=== PATIENT | male | born 1955 | race Caucasian/White ===

== ENCOUNTER 2021-09-24 14:29 | Outpatient (CLI) | payer MEDICARE | END 2021-09-24 14:30 | disposition home or self-care (01) | LOC: LABBT 14:29 | PROVIDERS: ATTEND Thoracic Surgery (Cardiothoracic Vascular Surgery) | DX: Z01.818 Encounter for other preprocedural examination (principal); Z20.822 Contact with and (suspected) exposure to COVID-19 | CPT/HCPCS: 80048; 85027; 86850; 86900; 86901; 87811; 93005; 93010 ==

== ENCOUNTER 2021-09-24 14:30 | Inpatient (IN) | payer MEDICARE ==
[2021-09-24 16:18] LABS: Hemoglobin 16.5 g/dL (13.5-17.5); Mean Corpuscular HGB CONC 33.5 g/dL (32.0-36.0); Mean Corpuscular Hemoglobin 32.7 pg (27.0-33.0); Mean Corpuscular Volume 97.8 fl (81.2-95.1); Mean Platelet Volume 10.9 fl (7.4-10.4); Platelet Count 270 10x3/uL (150-450); RBC Distribution Width 13.2 % (11.5-14.5); Red Blood Cell (RBC) Count 5.04 10x6/uL (4.32-5.72); White Blood Cell (WBC) Count 7.6 10x3/uL (3.5-10.5)
[2021-09-24 16:39] LABS: Anion Gap 13 mmol/L (10-20); BUN (Urea Nitrogen) 9 mg/dL (8.4-25.7); Calc. Creatinine Clearance 0 mL/min (70-130); Calcium 9.2 mg/dL (7.8-10.44); Carbon Dioxide 28 mmol/L (23-31); Chloride 107 mmol/L (98-107); Estimated GFR 85; Glucose 171 mg/dL (80-115); Potassium 4.1 mmol/L (3.5-5.1); Sodium 144 mmol/L (136-145)
[2021-09-28] MEDS ORDERED: Midazolam HCl 2 mg/2 ml Vial ONE ×2 (08:12→08:54)
[2021-09-28] MEDS ORDERED: fentaNYL Citrate/PF 100 MCG/2 ML SYRINGE ONE (08:13)
[2021-09-28] MEDS ORDERED: Lidocaine 1% MPF 2 ML VIAL ONE (08:53)
[2021-09-28] MEDS ORDERED: CEFAZOLIN 2 GM VIAL ONE (10:41)
[2021-09-28] MEDS ORDERED: Sodium Chloride 0.9% 100 ML ONE (10:41)
[2021-09-28] MEDS ORDERED: Naloxone HCl 0.4 mg/ml Vial IV PRN (10:45)
[2021-09-28] MEDS ORDERED: Promethazine HCl 25 MG/ML VIAL IM PRN (10:45)
[2021-09-28] MEDS ORDERED: Bupivacaine 0.25% 10 ML VIAL EPIDURAL PRN (10:45)
[2021-09-28] MEDS ORDERED: HYDROcodone/Acetaminophen 5/325 mg Tablet PO PRN (10:45)
[2021-09-28] MEDS ORDERED: diphenhydrAMINE 50 MG/ML VIAL IM PRN (10:45)
[2021-09-28] MEDS ORDERED: diphenhydrAMINE 25 MG CAP PO PRN (10:45)
[2021-09-28] MEDS ORDERED: traMADol HCl 50 MG TAB PO PRN ×2 (10:45)
[2021-09-28] MEDS ORDERED: Promethazine HCl 25 MG SUPP PR PRN (10:45)
[2021-09-28] MEDS ORDERED: Zolpidem Tartrate 5 MG TAB PO PRN (10:45)
[2021-09-28] MEDS ORDERED: Ondansetron PF 4 MG/2 ML Vial IVP PRN ×2 (10:45→15:34)
[2021-09-28] MEDS ORDERED: Moisturizing Cream (Eucerin) 113 GM JAR TOP PRN (10:45)
[2021-09-28] MEDS ORDERED: diphenhydrAMINE 50 MG/ML VIAL IVP PRN (10:45)
[2021-09-28] MEDS ORDERED: Naloxone HCl 0.4 mg/ml Vial IVP PRN (10:45)
[2021-09-28] MEDS ORDERED: Lidocaine 2% w/Epinephrine 1:200K 20 ML VIAL ONE (10:50)
[2021-09-28] MEDS ORDERED: Glycopyrrolate 0.2 MG/ML 5 ML SYRINGE ONE (10:50)
[2021-09-28] MEDS ORDERED: Lidocaine 1.5% w/Epi 1:200K 30 ML VIAL (Epid Use) ONE (10:50)
[2021-09-28] MEDS ORDERED: Ondansetron PF 4 MG/2 ML Vial ONE (10:50)
[2021-09-28] MEDS ORDERED: Rocuronium Bromide 10 MG/ML (10ML VIAL) ONE (10:50)
[2021-09-28] MEDS ORDERED: PROPOFOL 200 MG/20 ML VIAL ONE (10:50)
[2021-09-28] MEDS ORDERED: Dexamethasone 20 MG/5 ML VIAL ONE (10:50)
[2021-09-28] MEDS ORDERED: Bupivacaine/Epinephrine 0.25% 30 ML VIAL ONE (11:53)
[2021-09-28] MEDS ORDERED: Ondansetron HCl/PF 4 MG/2 ML Vial IVP PRN (13:15)
[2021-09-28] MEDS ORDERED: Promethazine HCl 25 MG/ML VIAL IM/IV PRN (13:15)
[2021-09-28] MEDS: Sodium Chloride 0.9% 1,000 ML IV SCH (15:10)
[2021-09-28] MEDS ORDERED: hydrALAZINE 20 MG/ML VIAL SLOW IVP PRN (15:34)
[2021-09-28] MEDS: Rosuvastatin 20 MG TAB PO SCH (20:07)
[2021-09-28] MEDS: CEFAZOLIN 2 GM in Sodium Chloride 0.9% 100 ML IVPB SCH (20:07)
[2021-09-29] MEDS: Sodium Chloride 0.9% 1,000 ML IV SCH ×3 (00:55→23:01)
[2021-09-29] MEDS: fentaNYL Citrate/PF 500 MCG, Bupivacaine 0.75% 10 ML in Sodium Chloride 0.9% 80 ML EPIDURAL SCH ×2 (02:04→15:19)
[2021-09-29] MEDS: CEFAZOLIN 2 GM in Sodium Chloride 0.9% 100 ML IVPB SCH ×2 (03:33→13:56)
[2021-09-29 06:13] LABS: #Neutrophils 10.2 thou/uL (1.40-6.50); %Eosinophils 0.2 % (0.0-10.0); %Lymphocytes 8.1 % (21.0-51.0); %Monocytes 7.9 % (0.0-10.0); %Neutrophils 83.8 % (42.0-75.0); Mean Corpuscular HGB CONC 33.4 g/dL (32.0-36.0); Mean Platelet Volume 8.9 fL (7.4-10.4); Platelet Count 195 thou/uL (130-400); RBC Distribution Width 12.1 % (11.5-14.5); Red Blood Cell (RBC) Count 4.24 mill/uL (4.70-6.10); White Blood Cell (WBC) Count 12.2 thou/uL (4.8-10.8)
[2021-09-29 06:38] LABS: Anion Gap 11 mmol/L (10-20); BUN (Urea Nitrogen) 5 mg/dL (8.4-25.7); Calc. Creatinine Clearance 101 mL/min (70-130); Calcium 8.1 mg/dL (7.8-10.44); Carbon Dioxide 26 mmol/L (23-31); Chloride 107 mmol/L (98-107); Estimated GFR 101; Glucose 127 mg/dL (80-115); Potassium 3.5 mmol/L (3.5-5.1); Sodium 140 mmol/L (136-145)
[2021-09-29] MEDS: Ketorolac Tromethamine 30 MG/ML VIAL IVP PRN (11:10)
[2021-09-29] MEDS: Rosuvastatin 20 MG TAB PO SCH (19:53)
[2021-09-30] MEDS: fentaNYL Citrate/PF 500 MCG, Bupivacaine 0.75% 10 ML in Sodium Chloride 0.9% 80 ML EPIDURAL SCH ×2 (03:59→17:32)
[2021-09-30] MEDS: Sodium Chloride 0.9% 1,000 ML IV SCH (08:30)
[2021-09-30] MEDS: Ketorolac Tromethamine 30 MG/ML VIAL IVP PRN (08:56)
[2021-09-30] MEDS: Rosuvastatin 20 MG TAB PO SCH (21:02)
[2021-10-01] MEDS: fentaNYL Citrate/PF 500 MCG, Bupivacaine 0.75% 10 ML in Sodium Chloride 0.9% 80 ML EPIDURAL SCH ×2 (06:07→19:19)
[2021-10-01] MEDS ORDERED: Furosemide 20 MG TAB PO SCH (06:45)
[2021-10-01] MEDS ORDERED: Potassium Chloride 10 MEQ TAB PO SCH (06:45)
[2021-10-01] MEDS: Acetaminophen 500 MG TAB PO PRN (12:13)
[2021-10-01] MEDS: Rosuvastatin 20 MG TAB PO SCH (21:43)
[2021-10-02] MEDS: fentaNYL Citrate/PF 500 MCG, Bupivacaine 0.75% 10 ML in Sodium Chloride 0.9% 80 ML EPIDURAL SCH ×2 (08:48→21:33)
[2021-10-02] MEDS: Acetaminophen 500 MG TAB PO PRN (10:14)
[2021-10-02] MEDS: Rosuvastatin 20 MG TAB PO SCH (20:00)
[2021-10-03] MEDS: HYDROcodone/Acetaminophen 5/325 mg Tablet PO PRN (09:11)
[2021-10-03] MEDS: Rosuvastatin 20 MG TAB PO SCH (20:41)
[2021-10-03] MEDS: fentaNYL Citrate/PF 500 MCG, Bupivacaine 0.75% 10 ML in Sodium Chloride 0.9% 80 ML EPIDURAL SCH (22:58)
[2021-10-04] MEDS: fentaNYL Citrate/PF 500 MCG, Bupivacaine 0.75% 10 ML in Sodium Chloride 0.9% 80 ML EPIDURAL SCH (12:35)
[2021-10-04] MEDS: Rosuvastatin 20 MG TAB PO SCH (21:26)
[2021-10-05] MEDS: Rosuvastatin 20 MG TAB PO SCH (20:52)
[2021-10-06] MEDS: HYDROcodone/Acetaminophen 5/325 mg Tablet PO PRN (02:26)
[2021-10-06] MEDS: Rosuvastatin 20 MG TAB PO SCH (20:54)
[2021-10-07] MEDS ORDERED: Milk Of Magnesia 30 ML UDCUP PO PRN (09:21)
[2021-10-07] MEDS ORDERED: Magnesium Citrate 300 ML BOT PO PRN (09:21)
[2021-10-07] MEDS ORDERED: Potassium Chloride 20 MEQ TAB PO SCH ×2 (10:15→14:30)
[2021-10-07] MEDS ORDERED: Furosemide 40 MG TAB PO SCH (11:00)
[2021-10-07] MEDS ORDERED: Polyethylene Glycol 3350 17 GM Packet PO PRN (11:40)
[2021-10-07 13:07] LABS: #Eosinphils 0.2 thou/uL (0.0-0.7); #Lymphocytes 1.3 thou/uL (1.20-3.40); #Monocytes 1.3 thou/uL (0.11-0.59); #Neutrophils 9.1 thou/uL (1.40-6.50); %Basophils 0.2 % (0.0-1.0); %Eosinophils 1.4 % (0.0-10.0); %Lymphocytes 11.3 % (21.0-51.0); %Monocytes 10.6 % (0.0-10.0); %Neutrophils 76.5 % (42.0-75.0); Hemoglobin 14.9 g/dL (14.0-18.0); Mean Corpuscular HGB CONC 32.2 g/dL (32.0-36.0); Mean Corpuscular Hemoglobin 32.4 pg (27.0-31.0); Mean Platelet Volume 7.3 fL (7.4-10.4); Platelet Count 423 thou/uL (130-400); RBC Distribution Width 12.3 % (11.5-14.5); Red Blood Cell (RBC) Count 4.61 mill/uL (4.70-6.10); White Blood Cell (WBC) Count 11.8 thou/uL (4.8-10.8)
[2021-10-07 13:30] LABS: BUN (Urea Nitrogen) 12 mg/dL (8.4-25.7); Calc. Creatinine Clearance 97 mL/min (70-130); Calcium 8.7 mg/dL (7.8-10.44); Estimated GFR 98; Glucose 131 mg/dL (80-115)
[2021-10-07 13:47] LABS: Chloride 92 mmol/L (98-107); Sodium 142 mmol/L (136-145)
[2021-10-07 13:50] LABS: Anion Gap 17 mmol/L (10-20); Carbon Dioxide 36 mmol/L (23-31)
[2021-10-07 13:58] LABS: Potassium 2.9 mmol/L (3.5-5.1)
[2021-10-07] MEDS: Mometasone 100 MCG/Formoterol 5 MCG 120 PUFF INHALER INH SCH (18:40)
[2021-10-07] MEDS: guaiFENesin ER 600 MG TAB PO SCH (20:54)
[2021-10-07] MEDS: Rosuvastatin 20 MG TAB PO SCH (20:54)
[2021-10-08 05:29] LABS: Anion Gap 15 mmol/L (10-20); BUN (Urea Nitrogen) 10 mg/dL (8.4-25.7); Calc. Creatinine Clearance 110 mL/min (70-130); Calcium 8.3 mg/dL (7.8-10.44); Carbon Dioxide 34 mmol/L (23-31); Chloride 93 mmol/L (98-107); Estimated GFR 102; Glucose 97 mg/dL (80-115); Sodium 139 mmol/L (136-145)
[2021-10-08 05:31] LABS: Potassium 2.8 mmol/L (3.5-5.1)
[2021-10-08] MEDS ORDERED: Electrolyte Replacement Protocol 1 EACH FS SCH (06:30)
[2021-10-08] MEDS: Mometasone 100 MCG/Formoterol 5 MCG 120 PUFF INHALER INH SCH (07:39)
[2021-10-08 07:50] VITALS: BMI 20.7
[2021-10-08 08:44] LABS: Magnesium 2.6 mg/dL (1.6-2.6)
[2021-10-08] MEDS: Potassium Chloride 20 MEQ TAB PO SCH ×2 (09:07→11:20)
[2021-10-08] MEDS: guaiFENesin ER 600 MG TAB PO SCH (09:07)
[2021-10-08 17:16] VITALS: BP 113/67; TEMP 97.8
== END 2021-10-08 17:09 | disposition home or self-care (01) | DRG 164 ==
LOC: SURG A 09-28 07:47 → CCU 09-28 14:30 → NEURO 09-30 10:09 → 2NO 10-02 17:43
PROVIDERS: ADMIT Thoracic Surgery (Cardiothoracic Vascular Surgery); ATTEND Thoracic Surgery (Cardiothoracic Vascular Surgery)
PROC: 0BBG0ZZ Excision of Left Upper Lung Lobe, Open Approach (ICD-10-PCS; principal; 2021-09-28)
PROC: 07B70ZZ Excision of Thorax Lymphatic, Open Approach (ICD-10-PCS; 2021-09-28)
PROC: 0W9B30Z Drainage of Left Pleural Cavity with Drainage Device, Percutaneous Approach (ICD-10-PCS; 2021-09-28)
DX: C34.12 Malignant neoplasm of upper lobe, left bronchus or lung (principal); C77.1 Secondary and unspecified malignant neoplasm of intrathoracic lymph nodes; J93.82 Other air leak; Z20.822 Contact with and (suspected) exposure to COVID-19; I10 Essential (primary) hypertension; J44.9 Chronic obstructive pulmonary disease, unspecified; M19.90 Unspecified osteoarthritis, unspecified site; F17.210 Nicotine dependence, cigarettes, uncomplicated; R00.1 Bradycardia, unspecified; K59.00 Constipation, unspecified; R09.02 Hypoxemia; E87.6 Hypokalemia; Z79.899 Other long term (current) drug therapy
CPT/HCPCS: 36415; 36416; 71045; 71046; 80048; 83735; 85025; 85027; 86850; 86900; 86901; 88307; 88309; 88331; 88341; 88342; 94640; A4649; C1776; J0690; J1100; J1642; J1885; J2001; J2250; J2405; J2704; J2710; J3010; J3490; J7050; J7620; U0003; U0005

== ENCOUNTER 2021-10-27 14:23 | Outpatient (CLI) | payer MEDICARE | END 2021-10-27 14:24 | disposition home or self-care (01) | LOC: RAD 14:23 | PROVIDERS: ATTEND Thoracic Surgery (Cardiothoracic Vascular Surgery) | DX: C34.12 Malignant neoplasm of upper lobe, left bronchus or lung (principal); R91.8 Other nonspecific abnormal finding of lung field; Q79.1 Other congenital malformations of diaphragm; Z98.890 Other specified postprocedural states | CPT/HCPCS: 71046 ==

== ENCOUNTER 2022-02-07 13:48 | Outpatient (CLI) | payer MEDICARE | END 2022-02-07 13:49 | disposition home or self-care (01) | LOC: BICRAD 13:48 | PROVIDERS: ATTEND Thoracic Surgery (Cardiothoracic Vascular Surgery) | DX: C34.12 Malignant neoplasm of upper lobe, left bronchus or lung (principal); R91.8 Other nonspecific abnormal finding of lung field | CPT/HCPCS: 71046 ==

== ENCOUNTER 2024-07-18 14:26 | Outpatient (CLI) | payer MEDICARE, OTHER | END 2024-07-18 14:27 | disposition home or self-care (01) | LOC: RAD 14:26 | PROVIDERS: ATTEND Thoracic Surgery (Cardiothoracic Vascular Surgery) | DX: R91.8 Other nonspecific abnormal finding of lung field (principal) | CPT/HCPCS: 71046 ==